=== PATIENT | male | born 1970 | race Caucasian/White ===

== ENCOUNTER 2021-11-08 20:37 | Emergency (ER) | payer BC ==
[2021-11-08] MEDS ORDERED: Lidocaine 2% with EPINEPHrine 1:100,000 20 ML MDV INFILT ONE (20:38)
--- NOTE | 2021-11-08 20:53 | EDM.PDOC ---
ED HPI GENERAL MEDICAL PROBLEM - General Chief Complaint: Laceration Stated Complaint: FORHEAD LACERATION Time Seen by Provider: 11/08/21 20:50 Source of Information: Reports: Patient History Limitations: Reports: No Limitations - History of Present Illness INITIAL COMMENTS - FREE TEXT/NARRATIVE: Had a laceration at home by a piece of metal. - Related Data Allergies Allergy/AdvReac Type Severity Reaction Status Date / Time Penicillins Allergy Cannot Verified 08/30/18 15:48 Remember Home Meds: Home Meds ClonazePAM [KlonoPIN] 0.5 mg PO BID PRN 08/30/18 [History] Sertraline HCl 100 mg PO DAILY 08/30/18 [History] metFORMIN HCl [Metformin HCl] 1,000 mg PO BID 08/30/18 [History] Past Medical History Cardiovascular History: Reports: Other (See Below) Other Cardiovascular History: PVCs Genitourinary History: Reports: Renal Calculus Psychiatric History: Reports: Anxiety Endocrine/Metabolic History: Reports: Diabetes, Type II - Infectious Disease History Infectious Disease History: Reports: Chicken Pox - Past Surgical History Male Surgical History: Reports: Kidney Stone Extraction Musculoskeletal Surgical History: Reports: Other (See Below) Other Musculoskeletal Surgeries/Procedures:: Scope of right knee Social & Family History - Family History Family Medical History: No Pertinent Family History - Caffeine Use Caffeine Use: Reports: None ED ROS GENERAL - Review of Systems Review Of Systems: Comprehensive ROS is negative, except as noted in HPI. ED EXAM, SKIN/RASH Exam: See Below Text/Narrative:: 2 cm lac to the left forehead Exam Limited By: No Limitations General Appearance: Alert, No Apparent Distress ED SKIN PROCEDURES - Laceration/Wound Repair Left Face Appearance: Superficial Distal NVT: Neuro & Vascular Intact Anesthetic Type: Local Local Anesthesia - Lidocaine (Xylocaine): 1% with EPI Local Anesthetic Volume: 2cc Closed with: Sutures Lac/Wound length In cm: 2 Suture Size: 5-0 Suture Type: Prolene Drain Placement: No Sterile Dressing Applied: Nurse Tetanus Status Addressed: Yes Departure - Departure Time of Disposition: 20:52 Disposition: Home, Self-Care 01 Clinical Impression: Laceration of face - Discharge Information - Problem List & Annotations (1) Laceration SNOMED Code(s): 288814143 Code(s): [id number] - Status: Acute - Problem List Review Problem List Initiated/Reviewed/Updated: Yes - Assessment/Plan Plan: I repaired the laceration successfully.
== END 2021-11-08 21:05 | disposition home or self-care (01) ==
LOC: FB.ED 20:37
DX: S01.81XA Laceration without foreign body of other part of head, initial encounter (principal); W26.8XXA Contact with other sharp object(s), not elsewhere classified, initial encounter; Y92.009 Unspecified place in unspecified non-institutional (private) residence as the place of occurrence of the external cause
CPT/HCPCS: 12011; 99282-25